=== PATIENT | female | born 1950 | race Caucasian/White ===

== ENCOUNTER 2021-02-02 06:49 | Emergency (ER) | payer MEDICARE, SELFPAY ==
--- NOTE | ~2021-02-02 | CT_ITS ---
EXAMINATION: CT abdomen pelvis w con DATE: 02/02/2021 09:02 INDICATION: Right flank pain 4 days post fall from ladder. TECHNIQUE: Computed tomography (CT) of the abdomen and pelvis was performed with 100 mL Omnipaque-350 intravenous contrast. Automated exposure control and iterative reconstruction technique were employe d. The dose-length product was 391.71 mGy-cm. COMPARISON: None FINDINGS: Mild emphysema in the visualized lower lungs. Mild dependent atelectasis in the bilateral lower lobes . Heart size is normal. No pericardial or pleural effusion. Liver, gallbladder, spleen, pancreas, rafia ateral adrenal glands and kidneys are normal. Bowels including the appendix are normal. Bladder, ante verted uterus and bilateral adnexa are unremarkable. No free intraperitoneal gas or fluid. Mild lumba r dextroscoliosis with severe spondylosis. No acute fractures identified. Spinal stimulator located i n the subcutaneous fat at the left flank with leads extending into the central canal at the level of T9-T10 and extending cephalad beyond the cephalad-most images. IMPRESSION: 1. No acute fracture or acute intra-abdominal/pelvic process. 2. Emphysema. Reviewed, dictated and finalized at location A.
--- NOTE | ~2021-02-02 | XR_ITS ---
EXAMINATION: XR hip RT 2V w AP pelvis DATE: 02/02/2021 07:43 INDICATION: Right hip pain post fall TECHNIQUE: Anteroposterior view of the pelvis and anteroposterior and frog-leg lateral views of the r ight hip were obtained. COMPARISON: None. FINDINGS: Visualized mild lumbar dextroscoliosis with severe spondylosis. Normal alignment and joint space at t he bilateral hips. No fracture or suspected avascular necrosis. IMPRESSION: 1. Normal right hip. No acute osseous abnormality. 2. Mild lumbar dextroscoliosis with severe spondylosis. Reviewed, dictated and finalized at location A.
--- NOTE | ~2021-02-02 | XR_ITS ---
EXAMINATION: [id number] DATE: 02/02/2021 09:12 INDICATION: Right chest injury and pain. TECHNIQUE: A frontal view of the chest and 3 views of the right ribs were obtained. COMPARISON: CT abdomen and pelvis 02/02/2021 FINDINGS: A calcified left lung nodule is consistent with old granulomatous disease. There is mild at electasis at the lung bases. No pleural effusion or pneumothorax. The heart size is normal. Epidural electrodes are noted. There are changes of anterior fusion procedure in cervical spine. There is frac ture of the fixation plate. IMPRESSION: 1. No rib fracture. 2. Cervical anterior fusion procedure with fracture of the fixation plate. Reviewed, dictated and finalized at location A.
[2021-02-02 06:54] VITALS: BP 146/69; PULSE 80; RESP 16; TEMP 36.7; O2SAT 96
--- NOTE | 2021-02-02 08:40 | ED.FALL ---
HPI - Fall General Chief Complaint: Fall Stated Complaint: Right side pain-fell off ladder Time Seen by Provider: 02/02/21 08:22 Source: patient and RN notes reviewed Mode of arrival: ambulatory Limitations: no limitations History of Present Illness HPI Narrative: Patient is 70 years old white female missed stepped and fell landed on the edge of a countertop, against right flank area 4 days ago. Complaining of severe pain at that area. Patient denies any nausea, vomiting, fever or chills. Also denies any head ,neck or extremity injury. Related Data Allergies Allergy/AdvReac Type Severity Reaction Status Date / Time codeine Allergy Difficulty Verified 02/02/21 07:01 Breathing Review of Systems Review of Systems: Narrative: CONSTITUTIONAL: Denies fever, chills, or sweats. EYES: Denies visual changes, redness, or discharge. ENT: Denies rhinorrhea, congestion, sore throat, or otalgia. CARDIOVASCULAR: Denies chest pain, palpitations, or edema. RESPIRATORY: Denies cough or dyspnea. GASTROINTESTINAL: Denies abdominal pain, nausea, vomiting, or diarrhea. GENITOURINARY: Denies dysuria or hematuria. SKIN: Denies rash or itching. MUSCULOSKELETAL: Denies back pain, joint pain, or myalgia. NEUROLOGIC: Denies headache, numbness, or weakness. PSYCHIATRIC: Denies anxiety or depression. Exam Narrative: Exam Narrative: General appearance: Well-developed, well-nourished Skin: Normal color Head: Normocephalic, nontraumatic Eyes: Clear conjunctiva ENT: Oropharynx normal, ears normal, nose normal Neck: Supple, nontender Chest and respiratory: Airway patent, no respiratory distress, no accessory muscle use, moderate tenderness right lower ribs posteriorly Heart: Regular rate/rhythm Abdomen: Soft, severe diffuse tenderness right flank, large bruises, Vascular: Normal peripheral pulses, normal capillary refill. Musculoskeletal: Normal range of motion, nontender back Neurologic: Alert and oriented ?3, HAND POLISHER is normal as tested, no gross motor deficit Course Course Emergency Course: Stable Consultations Consultation #1: Dr. Dumont, spine surgeon at [facility] Patient is okay to go home and follow-up with him as outpatient, call the office at [phone] Date: 02/02/21 Time: 11:12 Vital Signs Vital signs: Vital Signs Temperature 36.7 C 02/02/21 06:54 Pulse Rate 80 02/02/21 06:54 Respiratory Rate 16 02/02/21 06:54 Blood Pressure 146/69 H 02/02/21 06:54 Pulse Oximetry 96 02/02/21 06:54 Temperature 36.7 C 02/02/21 06:54 Pulse Rate 80 02/02/21 06:54 Respiratory Rate 16 02/02/21 06:54 Blood Pressure 146/69 H 02/02/21 06:54 Pulse Oximetry 96 02/02/21 06:54 MDM - Fall MDM Narrative Medical decision making narrative: The plan to rule out internal hemorrhage. Labs, CT abdomen pelvis with IV contrast, x-ray right rib ordered. Further plan to follow Differential Diagnosis Differential diagnosis: Likely other (Liver injury, kidney injury, rib fracture, muscle contusion) Lab Data Result diagrams: 02/02/21 08:52 02/02/21 08:57 Labs: Lab Results 02/02/21 02/02/21 02/02/21 Range/Units 08:52 08:52 08:57 WBC 13.1 H (4.5-10.0) K/mm3 RBC 4.76 (4.2-5.4) M/mm3 Hgb 15.1 H (12.0-15.0) g/dL Hct 45.4 (37.0-47.0) % MCV 95.4 (80-100) fl MCH 31.7 (26-34) pg MCHC 33.3 (32-36) g/dl RDW 14.2 (11.5-14.5) % Plt Count 348 (150-375) k/mm3 MPV 8.8 (7.4-10.4) fl Immature Gran % (Auto) 0.5 (0-0.5) % Neut % (Auto) 84.4 H (45.5-73.1) % Lymph % (Auto) 11.0 L (18.3-44.2) % [place] % (Auto) 3.1 (2.6-8.5) % Eos % (Auto) 0.5 (0-4.4) % B
[2021-02-02 08:58] LABS: Estimated CRCL calculation 56 ml/min; Estimated Glomerular Filt Rate > 60
[2021-02-02 09:00] LABS: Basophils Absolute Auto 0.1 K/mm3 (0.0-0.1); Basophils Percent Auto 0.5 % (0.2-1.2); Eosinophils Absolute Auto 0.1 K/mm3 (0-0.3); Eosinophils Percent Auto 0.5 % (0-4.4); Hematocrit 45.4 % (37.0-47.0); Hemoglobin 15.1 g/dL (12.0-15.0); Immature Granulocyte Absolute 0.07 K/mm3 (0.00-0.031); Immature Granulocyte Percent A 0.5 % (0-0.5); Lymphocytes Absolute Auto 1.44 K/mm3 (0.9-3.2); Mean Corpuscular HGB Conc 33.3 g/dl (32-36); Mean Corpuscular Hemoglobin 31.7 pg (26-34); Mean Corpuscular Volume 95.4 fl (80-100); Mean Platelet Volume 8.8 fl (7.4-10.4); Monocytes Absolute Auto 0.4 K/mm3 (0.1-0.6); Monocytes Percent Auto 3.1 % (2.6-8.5); Neutrophils Absolute Auto 11.1 K/mm3 (1.3-6.7); Neutrophils Percent Auto 84.4 % (45.5-73.1); Platelet Count Result 348 k/mm3 (150-375); Red Blood Count 4.76 M/mm3 (4.2-5.4); Red Cell Distribution Width 14.2 % (11.5-14.5); White Blood Count 13.1 K/mm3 (4.5-10.0)
[2021-02-02 09:12] LABS: Alanine Aminotransferase 18 U/L (4-35); Albumin Level 4.3 g/dL (3.5-5.1); Alkaline Phosphatase 49 U/L (38-126); Anion Gap 4 mmol/L (8-16); Aspartate Amino Transferase 32 U/L (14-36); Bilirubin,Total 0.5 mg/dL (0.2-1.3); Blood Urea Nitrogen 18 mg/dL (7-17); Calcium 9.2 mg/dL (8.4-10.2); Carbon Dioxide 28 mmol/L (22-30); Chloride 105 mmol/L (98-107); Estimated CRCL calculation 63 ml/min; Estimated Glomerular Filt Rate > 60; Glucose 95 mg/dL (65-105); Potassium 4.6 mmol/L (3.4-5.0); Sodium 137 mmol/L (137-145)
== END 2021-02-02 11:17 | disposition home or self-care (01) ==
PROVIDERS: Emergency Provider Emergency Medicine
DX: S30.1XXA Contusion of abdominal wall, initial encounter (principal); Z98.1 Arthrodesis status; M47.816 Spondylosis without myelopathy or radiculopathy, lumbar region; J43.9 Emphysema, unspecified; W11.XXXA Fall on and from ladder, initial encounter
CPT/HCPCS: 36415; 71101; 73502; 74177; 80053; 85025; 99284; Q9967

== ENCOUNTER 2022-09-16 20:23 | Emergency (ER) | payer MEDICARE, SELFPAY ==
--- NOTE | ~2022-09-16 | XR_ITS ---
EXAMINATION: XR chest 2V Exam Date/Time: 09/16/2022 20:52 [employer] HISTORY: SOB FOR 2 DAYS, COPD, SMOKER Comparison: None available. RESULT: Lines, tubes, and devices: Cervical fusion hardware. Left-sided generator pack with leads projecting over the midthoracic spine. Lungs and pleura: Senescent/emphysematous change, otherwise clear. Cardiomediastinal silhouette: Unremarkable. Other: No acute osseous or upper abdominal finding. IMPRESSION: No acute cardiopulmonary process. Reviewed, dictated and finalized at location K. [employer]
[2022-09-16 20:27] VITALS: BP 119/59; PULSE 89; RESP 22; TEMP 36.4; O2SAT 95
--- NOTE | 2022-09-16 20:32 | ECG_ITS ---
Measurements Intervals [place] Rate: 88 P: 79 [place]: 182 QRS: 78 QRSD: 86 T: 75 QT: 357 QTc: 434 Interpretive Statements SINUS RHYTHM POSSIBLE LEFT ATRIAL ENLARGEMENT [-0.1mV P WAVE IN V1/V2] MINIMAL ST DEPRESSION [0.025+ mV ST DEPRESSION] NO PREVIOUS ECG AVAILABLE FOR COMPARISON Electronically Signed On 09-17-2022 16:15:31 TECHNICAL CUSTOMER SUPPORT SPECIALIST by Zachary Koch M.D.
[2022-09-16 20:52] LABS: Basophils Absolute Auto 0.1 K/mm3 (0.0-0.1); Eosinophils Absolute Auto 0.2 K/mm3 (0-0.3); Eosinophils Percent Auto 1.9 % (0-4.4); Hematocrit 45.2 % (37.0-47.0); Hemoglobin 15.3 g/dL (12.0-15.0); Immature Granulocyte Absolute 0.05 K/mm3 (0.00-0.031); Immature Granulocyte Percent A 0.4 % (0-0.5); Lymphocytes Absolute Auto 2.07 K/mm3 (0.9-3.2); Lymphocytes Percent Auto 17.1 % (18.3-44.2); Mean Corpuscular HGB Conc 33.8 g/dl (32-36); Mean Corpuscular Hemoglobin 32.1 pg (26-34); Mean Platelet Volume 9.2 fl (7.4-10.4); Monocytes Absolute Auto 0.6 K/mm3 (0.1-0.6); Monocytes Percent Auto 4.9 % (2.6-8.5); Neutrophils Absolute Auto 9.1 K/mm3 (1.3-6.7); Neutrophils Percent Auto 74.7 % (45.5-73.1); Platelet Count Result 320 k/mm3 (150-375); Red Blood Count 4.76 M/mm3 (4.2-5.4); Red Cell Distribution Width 14.1 % (11.5-14.5); White Blood Count 12.1 K/mm3 (4.5-10.0)
[2022-09-16 21:05] LABS: Alanine Aminotransferase 22 U/L (6-35); Albumin Level 4.3 g/dL (3.5-5.1); Alkaline Phosphatase 55 U/L (38-126); Anion Gap 5 mmol/L (8-16); Aspartate Amino Transferase 30 U/L (14-36); Bilirubin,Total 0.5 mg/dL (0.2-1.3); Blood Urea Nitrogen 13 mg/dL (7-17); Calcium 9.1 mg/dL (8.4-10.2); Carbon Dioxide 28 mmol/L (22-30); Chloride 102 mmol/L (98-107); Estimated CRCL calculation 67 ml/min; Estimated Glomerular Filt Rate > 60; Glucose 127 mg/dL (65-110); Potassium 3.6 mmol/L (3.4-5.0); Sodium 135 mmol/L (137-145)
[2022-09-16 22:11] VITALS: BP 128/66; PULSE 78; RESP 16; O2SAT 91
[2022-09-16] MEDS: ALBUTEROL SULFATE NEB 2.5 MG/3 ML INH INHALATION (23:06)
[2022-09-16] MEDS: IPRATROPIUM BR 0.02% INH SOLN 0.5 MG/2.5 ML VIAL INHALATION (23:06)
[2022-09-16 23:09] VITALS: PULSE 75; RESP 13
[2022-09-16 23:19] VITALS: PULSE 77; RESP 14
--- NOTE | 2022-09-17 00:30 | PC.NURSE ---
pt ambulated to bathroom and around nurse's station without difficulty. pt denied any sob. pt's 02 sat 94% with ambulation.
--- NOTE | 2022-09-17 01:15 | ED.GENADULT ---
HPI - General Adult General Chief complaint: Shortness of Breath/Dyspnea Stated complaint: SOB Time Seen by Provider: 09/16/22 22:16 History of Present Illness HPI narrative: Patient is a 72-year-old female who presents the emergency department chief complaint of shortness of breath. The patient reports he has history of COPD reports that she started having trouble breathing today and reports that she was wheezing pretty significantly at home. Patient reports she had a dry cough reports that she has had no fever. Patient reports she is chronically on prednisone daily. Patient received Solu-Medrol prior to arrival and a breathing treatment and is feeling much better Related Data Allergies Allergy/AdvReac Type Severity Reaction Status Date / Time codeine Allergy Difficulty Verified 02/02/21 07:01 Breathing Review of Systems Review of Systems: A 10 system review of systems was completed on the patient and is negative except for what is stated in the HPI. Nursing and ancillary documentation was reviewed. Exam Narrative: GENERAL: Well-appearing, well-nourished, and in no acute distress. HEAD: Normocephalic, atraumatic. EYES: PERRLA and EOMI. ENT: Nares clear, no rhinorrhea or epistaxis. Mucous membranes moist. NECK: Supple. CHEST: Clear to auscultation. No respiratory distress. HEART: Regular rate and rhythm. No murmur heard. Normal peripheral pulses. ABDOMEN: Soft, nontender, nondistended, normal active bowel sounds. EXTREMITIES: Normal range of motion. No edema. SKIN: Warm, dry, no rash. NEURO: No focal deficits. Alert and oriented x3. PSYCH: Normal mood and affect. Course Course Emergency Course: Chest x-ray showed no evidence of focal infiltrate. EKG is sinus rhythm rate of [address] elevation or ST depression Laboratory studies were obtained which showed a normal white blood cell count electrolytes show no significant abnormalities. Patient did receive Solu-Medrol prior to arrival by EMS and received a breathing treatment. The patient was reporting that she was feeling almost completely back to normal the patient was ambulated and her oxygen saturations were 89 to 90%. The patient received an additional breathing treatment in the emergency department and is now feeling much better and was able to ambulate without desaturation. I discussed with the patient admission versus discharge and the patient is feeling much better and would like to go home. Vital Signs Vital signs: Vital Signs Temperature 36.4 C 09/16/22 20:27 Pulse Rate 89 09/16/22 20:27 Respiratory Rate 22 H 09/16/22 20:27 Blood Pressure 119/59 L 09/16/22 20:27 Pulse Oximetry 95 09/16/22 20:27 Oxygen Delivery Room Air 09/16/22 20:27 Temperature 36.4 C 09/16/22 20:27 Pulse Rate 77 09/16/22 23:19 Respiratory Rate 14 09/16/22 23:19 Blood Pressure 128/66 09/16/22 22:11 Pulse Oximetry 91 09/16/22 22:11 Oxygen Delivery Room Air 09/16/22 20:27 Medical Decision Making Vital Signs Vital Signs: Vital Signs Temperature 36.4 C 09/16/22 20:27 Pulse Rate 89 09/16/22 20:27 Respiratory Rate 22 H 09/16/22 20:27 Blood Pressure 119/59 L 09/16/22 20:27 Pulse Oximetry 95 09/16/22 20:27 Oxygen Delivery Room Air 09/16/22 20:27 Temperature 36.4 C 09/16/22 20:27 Pulse Rate 77 09/16/22 23:19 Respiratory Rate 14 09/16/22 23:19 Blood Pressure 128/66 09/16/22 22:11 Pulse Oximetry 91 09/16/22 22:11 Oxygen Delivery Room Air 09/16/22 20:27 Lab Data 09/16/22 20:44 09/16/22 20:44 Labs: Lab Results 09/16/22 09/16/22 Range/Units 20:44 20:44 WBC 12.1 H (4.5-10.0) K/mm3 RBC 4.76 (4.2-5.4) M/mm3 Hgb 15.3 H (12.0-15.0) g/dL Hct 45.2 (37.0-47.0) % MCV 95.0 (80-100) fl MCH 32.1 (26-34) pg MCHC 33.8 (32-36) g/dl RDW 14.1 (11.5-14.5) % Plt Count 320 (150-375) k/mm3 MPV 9.2 (7.4-10.4) fl Immature Gran %
[2022-09-17 01:40] VITALS: BP 132/75; PULSE 90; RESP 16; O2SAT 94
[2022-09-17] MEDS: ACETAMINOPHEN 500 MG TABLET 1000 MG PO (01:42)
== END 2022-09-17 01:40 | disposition home or self-care (01) ==
PROVIDERS: Emergency Provider Emergency Medicine; PCP Family Medicine
DX: J44.1 Chronic obstructive pulmonary disease with (acute) exacerbation (principal); R94.31 Abnormal electrocardiogram [ECG] [EKG]
CPT/HCPCS: 36415; 71046; 80053; 85025; 93005; 94640; 99284; A9270

== ENCOUNTER 2022-10-22 20:53 | Emergency (ER) | payer MEDICARE, SELFPAY ==
--- NOTE | ~2022-10-22 | XR_ITS ---
EXAMINATION: XR chest 2V Exam Date/Time: 10/22/2022 22:26 CDT HISTORY: SOB, COPD HX OF PNEUMONIA Comparison: 09/16/2022. RESULT: Lines, tubes, and devices: Cervical fusion hardware. Stimulator electrodes project over the midthora cic spine. Posterior generator pack. Lungs and pleura: Senescent/emphysematous change, otherwise clear. Cardiomediastinal silhouette: Stable. Other: No acute osseous or upper abdominal finding. IMPRESSION: No acute cardiopulmonary process. Reviewed, dictated and finalized at location K.
[2022-10-22 21:04] VITALS: BP 110/59; PULSE 93; RESP 22; TEMP 36.9; O2SAT 93
--- NOTE | 2022-10-22 21:08 | ECG_ITS ---
Measurements Intervals [place] Rate: 89 P: 74 [place]: 167 QRS: 76 QRSD: 82 T: 72 QT: 365 QTc: 445 Interpretive Statements SINUS RHYTHM POSSIBLE LEFT ATRIAL ENLARGEMENT BASELINE ARTIFACT- I, II, III, AVR, AVL, AVF, V1 BORDERLINE ECG COMPARED TO ECG 09/16/2022 20:39:35 NO SIGNIFICANT CHANGES Electronically Signed On 10-22-2022 21:52:14 CDT by Jhonatan Locke D.O.
[2022-10-22 21:21] LABS: Basophils Absolute Auto 0.1 K/mm3 (0.0-0.1); Basophils Percent Auto 0.7 % (0.2-1.2); Eosinophils Absolute Auto 0.2 K/mm3 (0-0.3); Eosinophils Percent Auto 1.1 % (0-4.4); Hematocrit 43.8 % (37.0-47.0); Hemoglobin 14.8 g/dL (12.0-15.0); Immature Granulocyte Absolute 0.07 K/mm3 (0.00-0.031); Immature Granulocyte Percent A 0.5 % (0-0.5); Lymphocytes Absolute Auto 1.32 K/mm3 (0.9-3.2); Lymphocytes Percent Auto 9.6 % (18.3-44.2); Mean Corpuscular HGB Conc 33.8 g/dl (32-36); Mean Corpuscular Volume 94.6 fl (80-100); Mean Platelet Volume 8.7 fl (7.4-10.4); Monocytes Absolute Auto 0.2 K/mm3 (0.1-0.6); Monocytes Percent Auto 1.7 % (2.6-8.5); Neutrophils Absolute Auto 11.9 K/mm3 (1.3-6.7); Neutrophils Percent Auto 86.4 % (45.5-73.1); Platelet Count Result 370 k/mm3 (150-375); Red Blood Count 4.63 M/mm3 (4.2-5.4); Red Cell Distribution Width 14.2 % (11.5-14.5); White Blood Count 13.8 K/mm3 (4.5-10.0)
[2022-10-22 21:31] LABS: Alanine Aminotransferase 24 U/L (6-35); Albumin Level 4.2 g/dL (3.5-5.1); Alkaline Phosphatase 71 U/L (38-126); Anion Gap 3 mmol/L (8-16); Aspartate Amino Transferase 27 U/L (14-36); Bilirubin,Total 0.9 mg/dL (0.2-1.3); Blood Urea Nitrogen 15 mg/dL (7-17); Calcium 8.8 mg/dL (8.4-10.2); Carbon Dioxide 28 mmol/L (22-30); Chloride 105 mmol/L (98-107); Estimated CRCL calculation 83 ml/min; Estimated Glomerular Filt Rate > 60; Glucose 132 mg/dL (65-110); Sodium 136 mmol/L (137-145)
[2022-10-23] VITALS (18 sets, daily range): BP systolic 115–137; BP diastolic 64–81; PULSE 72–83; RESP 15–24; O2SAT 89–100
--- NOTE | 2022-10-23 01:44 | ED.SOB ---
HPI - SOB/Dyspnea General Chief Complaint: Shortness of Breath/Dyspnea Stated Complaint: sob Time Seen by Provider: 10/23/22 01:17 History of Present Illness HPI Narrative: This is a 72-year-old female with past history of COPD on daily 10 mg prednisone, who presents to the emergency department complaining of cough and shortness of breath for the past 2 days. She states the cough is nonproductive and nonbloody. She denies associated fevers or chills. She complains of some chest soreness aggravated by cough but no other chest pain. She has no other complaints today. Related Data Allergies Allergy/AdvReac Type Severity Reaction Status Date / Time codeine Allergy Difficulty Verified 10/23/22 00:45 Breathing morphine Allergy Itching Verified 10/23/22 00:45 Review of Systems Review of Systems: CONSTITUTIONAL: Denies fever, chills, or sweats. EYES: Denies visual changes, redness, or discharge. ENT: Denies rhinorrhea, congestion, sore throat, or otalgia. CARDIOVASCULAR: Chest soreness with cough denies palpitations, or edema. RESPIRATORY: Dry cough denies dyspnea. GASTROINTESTINAL: Denies abdominal pain, nausea, vomiting, or diarrhea. GENITOURINARY: Denies dysuria or hematuria. SKIN: Denies rash or itching. MUSCULOSKELETAL: Denies back pain, joint pain, or myalgia. NEUROLOGIC: Denies headache, numbness, dizziness, or weakness. PSYCHIATRIC: Denies anxiety or depression. [facility] Past Medical History Medical History (Updated 10/23/22 @ 01:48 by Kenneth Ring MD) COPD (chronic obstructive pulmonary disease) Exam Narrative: GENERAL: Well-developed, well-nourished, and in no acute distress. HEAD: Normocephalic, atraumatic. EYES: PERRLA and EOMI. ENT: Nares clear, no rhinorrhea or epistaxis. Mucous membranes moist. Oropharynx without tonsillar hypertrophy exudate or other lesions. NECK: Supple. No adenopathy or masses. No carotid bruits or JVD CHEST: Diminished aeration with faint end expiratory wheeze bilaterally. No respiratory distress. No rales or rhonchi HEART: Regular rate and rhythm. No murmur heard. Normal peripheral pulses. ABDOMEN: Soft, nontender, nondistended, normal active bowel sounds. EXTREMITIES: Normal range of motion. No edema. SKIN: Warm, dry, no rash. NEURO: No focal deficits. Alert and oriented x3. PSYCH: Normal mood and affect. Course Course Emergency Course: 03:10 - On reevaluation, the patient states she feels near normal. CBC demonstrates a white blood cell count of 13.8 with left shift but is otherwise unremarkable. Chemistries demonstrate mild hyponatremia of 136 but are otherwise unremarkable. UA negative. Influenza and COVID-negative. Chest x-ray negative for acute cardiopulmonary process. I suspect COPD exacerbation. Will treat with prednisone taper and a Z-Vadim. I discussed the findings and recommendations with the patient. Discussed return and emergent precautions including signs/symptoms of respiratory distress and ACS. The patient voiced understanding and is comfortable with the plan. All questions answered to her satisfaction Vital Signs Vital signs: Vital Signs Temperature 98.4 F 10/22/22 21:04 Pulse Rate 93 10/22/22 21:04 Respiratory Rate 22 H 10/22/22 21:04 Blood Pressure 110/59 L 10/22/22 21:04 Pulse Oximetry 93 10/22/22 21:04 Oxygen Delivery Room Air 10/22/22 21:04 Temperature 98.4 F 10/22/22 21:04 Pulse Rate 74 10/23/22 02:46 Respiratory Rate 16 10/23/22 02:46 Blood Pressure 127/71 10/23/22 02:46 Pulse Oximetry 92 10/23/22 02:46 Oxygen Delivery Room Air 10/22/22 21:04 MDM - SOB/Dyspnea MDM Narrative Medical decision making narrative: Plan: Labs, imaging, nebs, steroids, reassess Differential Diagnosis Differential diagnosis: Likely acute exacerbation of chronic obstructive airways disease, community acquired pneumonia and other (COVID, influenza, other) Lab Data 10/22/22 21:13 10/22/22 21:13
[2022-10-23] MEDS: predniSONE 20 MG TABLET 60 MG PO (01:53)
[2022-10-23] MEDS: ALBUTEROL SULFATE NEB 2.5 MG/3 ML INH INHALATION (01:59)
[2022-10-23] MEDS: IPRATROPIUM BR 0.02% INH SOLN 0.5 MG/2.5 ML VIAL INHALATION (01:59)
[2022-10-23 02:31] LABS: Appearance Urine Clear (Clear); Bilirubin Urine Negative (Negative); Blood Urine Negative (Negative); Color Urine Yellow (Yellow); Glucose Urine UA Negative (Negative); Ketones Urine Negative (Negative); Leukocyte Esterase Ur Negative LEU/UL (Negative); Nitrate Urine Negative (Negative); Protein Urine Negative (Negative); Specific Grav Ur 1.018 (1.001-1.035)
[2022-10-23 02:52] LABS: Add Urine Microscopic? NO
[2022-10-23 03:04] LABS: Influenza A QL RT-PCR Negative (Negative); Influenza B QL RT-PCR Negative (Negative); SARS-CoV-2 RNA PCR Negative
[2022-10-23] MEDS: AZITHROMYCIN 250 MG TABLET 500 MG PO (03:30)
== END 2022-10-23 03:40 | disposition home or self-care (01) ==
PROVIDERS: Emergency Medicine; Emergency Provider Preventive Medicine Aerospace Medicine; PCP Family Medicine
DX: J44.1 Chronic obstructive pulmonary disease with (acute) exacerbation (principal); Z20.822 Contact with and (suspected) exposure to COVID-19
CPT/HCPCS: 36415; 71046; 80053; 81003; 85025; 87636; 93005; 94640; 99284; A9270; J7512

== ENCOUNTER 2023-07-21 11:59 | Observation (INO) | payer MEDICARE, SELFPAY ==
[2023-07-21] VITALS (25 sets, daily range): BP systolic 108–134; BP diastolic 64–89; PULSE 71–90; RESP 13–22; TEMP 36.6; O2SAT 88–97; BMI 25.8
--- NOTE | ~2023-07-21 | XR_ITS ---
EXAMINATION: XR chest 2V DATE: 07/21/2023 13:52 INDICATION: Cough and shortness of breath TECHNIQUE: PA and lateral views of the chest are obtained. COMPARISON: 10/22/2022 FINDINGS: The lungs are hyperinflated but free of acute opacities. No pleural effusion or pneumothora x. The cardiomediastinal silhouette is normal. There is moderate thoracic spondylosis. There are ha ges of anterior fusion in the lower cervical spine with fracture of the stabilization plate. Neurosti mulator leads and in the central spinal canal. There is severe upper lumbar spondylosis. IMPRESSION: 1. No acute cardiopulmonary abnormality. Reviewed, dictated and finalized at location B. ENT SERVICES TECHNICIAN
--- NOTE | 2023-07-21 12:00 | ECG_ITS ---
Measurements Intervals [place] Rate: 88 P: 76 [place]: 161 QRS: 78 QRSD: 82 T: 81 QT: 342 QTc: 415 Interpretive Statements SINUS RHYTHM BASELINE ARTIFACT POSSIBLE LEFT ATRIAL ENLARGEMENT [-0.1mV P WAVE IN V1/V2] MINIMAL ST DEPRESSION [0.025+ mV ST DEPRESSION] BORDERLINE ECG COMPARED TO ECG 10/22/2022 21:16:12 ST (T WAVE) DEVIATION NOW PRESENT Electronically Signed On 07-21-2023 17:16:43 POSITION CLASSIFICATION MANAGER by Dragan Patino M.D.
[2023-07-21 12:16] LABS: Basophils Absolute Auto 0.1 K/mm3 (0.0-0.1); Basophils Percent Auto 0.6 % (0.2-1.2); Eosinophils Absolute Auto 0.1 K/mm3 (0-0.3); Eosinophils Percent Auto 0.8 % (0-4.4); Hemoglobin 15.5 g/dL (12.0-15.0); Immature Granulocyte Absolute 0.08 K/mm3 (0.00-0.031); Immature Granulocyte Percent A 0.6 % (0-0.5); Lymphocytes Absolute Auto 1.05 K/mm3 (0.9-3.2); Lymphocytes Percent Auto 8.1 % (18.3-44.2); Mean Corpuscular Hemoglobin 31.4 pg (26-34); Mean Corpuscular Volume 95.3 fl (80-100); Mean Platelet Volume 8.7 fl (7.4-10.4); Monocytes Absolute Auto 0.9 K/mm3 (0.1-0.6); Monocytes Percent Auto 6.9 % (2.6-8.5); Neutrophils Absolute Auto 10.8 K/mm3 (1.3-6.7); Platelet Count Result 327 k/mm3 (150-375); Red Blood Count 4.93 M/mm3 (4.2-5.4); Red Cell Distribution Width 14.3 % (11.5-14.5)
[2023-07-21 12:27] LABS: INR 0.9; Partial Thromboplastin Time 23.8 SECONDS (22.3-36.8); Prothrombin Time 12.2 Seconds (11.1-14.7)
[2023-07-21 12:29] LABS: Alanine Aminotransferase 20 U/L (6-35); Albumin Level 4.2 g/dL (3.5-5.1); Alkaline Phosphatase 56 U/L (38-126); Anion Gap 6 mmol/L (8-16); Aspartate Amino Transferase 23 U/L (14-36); Bilirubin,Total 0.5 mg/dL (0.2-1.3); Blood Urea Nitrogen 21 mg/dL (7-17); Calcium 9.4 mg/dL (8.4-10.2); Carbon Dioxide 25 mmol/L (22-30); Chloride 104 mmol/L (98-107); Estimated CRCL calculation 53 ml/min; Estimated Glomerular Filt Rate > 60; Glucose 96 mg/dL (65-110); Lipase 91 U/L (23-300); Potassium 3.8 mmol/L (3.4-5.0); Sodium 135 mmol/L (137-145)
[2023-07-21 12:40] LABS: Troponin I < 0.012 ng/mL (0.000-0.034)
[2023-07-21] MEDS: ASPIRIN 81 MG CHEWABLE TABLET 324 MG PO (13:40)
--- NOTE | 2023-07-21 15:00 | ECG_ITS ---
Measurements Intervals [place] Rate: 74 P: 77 [place]: 172 QRS: 79 QRSD: 83 T: 88 QT: 388 QTc: 432 Interpretive Statements SINUS RHYTHM BASELINE ARTIFACT NONSPECIFIC ST ABNORMALITY BORDERLINE ECG COMPARED TO ECG 07/21/2023 12:05:17 NO SIGNIFICANT CHANGES Electronically Signed On 07-21-2023 17:27:05 BAND SPLITTER by Dragan Patino M.D.
[2023-07-21] MEDS: ALBUTEROL SULFATE NEB 2.5 MG/3 ML INH 15 MG INHALATION (15:31)
[2023-07-21] MEDS: IPRATROPIUM BR 0.02% INH SOLN 0.5 MG/2.5 ML VIAL 1.5 MG INHALATION (15:31)
[2023-07-21] MEDS: methylPREDNISolone SOD SUCC 125 MG VIAL IV PUSH (15:31)
[2023-07-21 16:01] LABS: Troponin I < 0.012 ng/mL (0.000-0.034)
--- NOTE | 2023-07-21 17:03 | ED.SOB ---
HPI - SOB/Dyspnea General Chief Complaint: Shortness of Breath/Dyspnea Stated Complaint: SOB/CP Time Seen by Provider: 07/21/23 13:45 History of Present Illness HPI Narrative: Patient is a 73-year-old female who presents ER with shortness of breath. Ongoing for the last 3 days. Also shows mild chest tightness has occasional cough. No fevers or chills or sweats. Has history of COPD. Shortness of breath worse with walking better with rest. Related Data Home Medications Medication Instructions Recorded Confirmed fluticasone 500 mcg-salmeterol 50 1 inh inhalation ONCE 11/04/22 11/26/22 mcg/dose blistr powdr for inhalation (Advair Diskus) hydrocodone 7.5 mg-acetaminophen 1 tablet PO Q8H PRN pain 11/04/22 11/26/22 325 mg tablet umeclidinium 62.5 mcg/actuation 1 inh inhalation DAILY 11/04/22 11/26/22 blister powder for inhalation (Incruse Ellipta) Allergies Allergy/AdvReac Type Severity Reaction Status Date / Time codeine Allergy Difficulty Verified 07/21/23 13:40 Breathing morphine Allergy Itching Verified 07/21/23 13:40 Review of Systems Review of Systems: All systems reviewed & are unremarkable except as noted in HPI and below Constitutional: Constitutional: Reports fatigue and Denies fever(s) Cardiovascular: Cardiovascular: Reports chest pain, Denies rapid heart rate and Denies radiating jaw, neck or arm pain Respiratory: Respiratory: Reports cough, Reports dyspnea and Reports wheezing Gastrointestinal: Gastrointestinal: Reports no additional gastrointestinal complaints Genitourinary: Genitourinary: Reports no additional female genitourinary complaints Musculoskeletal: Musculoskeletal: Reports no additional musculoskeletal complaints [facility] Past Medical History Medical History (Updated 07/21/23 @ 18:58 by Darrin Villalba MD) Allergies COPD (chronic obstructive pulmonary disease) Osteoporosis Family History Family History (Updated 11/04/22 @ 11:37 by Akila Lloyd MA) Sibling Asthma Father Hypertension Depression Anxiety Cerebrovascular accident Grandparent Heart problem Grandparent Cerebrovascular accident Social History Social History (Updated 11/04/22 @ 11:41 by Akila Lloyd MA) Smoking packs per day: 1 Smoking cigarettes per day: 20.0 Smoking status: Former smoker Tobacco type: cigarettes Second hand tobacco smoke exposure: Yes Alcohol intake: never Substance use: never Substance use type: does not use Lack of Transportation: No Current Housing: I Have Housing Concerned About Future Housing: Decline to Answer Difficulty Paying Gas/Electric Bills: Decline to Answer Difficulty Paying for Meds: Decline to Answer Currently Unemployed: Decline to Answer Difficulty w/ Childcare or Family Care: Decline to Answer Living arrangements: alone Gender identity (if verbalized by the patient): Female Sexual Orientation (if Verbalized by the Patient): Straight or Heterosexual Spiritual care concerns: No Exam Narrative: GENERAL: Well-appearing, well-nourished, and in no acute distress. HEAD: Normocephalic, atraumatic. ENT: Mucous membranes moist. NECK: Supple. CHEST: Diminished throughout with wheezing. No respiratory distress. HEART: Regular rate and rhythm. Normal peripheral pulses. ABDOMEN: Soft, nontender, nondistended. EXTREMITIES: Normal range of motion. No edema. SKIN: Warm, dry, no rash. NEURO: Alert and oriented x3. PSYCH: Normal mood and affect. Course Course Emergency Course: Patient resting comfortably. Has received an hour long nebulizer treatment. There is improved air movement throughout the lungs still with mild wheezing. Ambulatory without hypoxia. Vital Signs Vital signs: Vital Signs Temperature 97.9 F 07/21/23 12:05 Pulse Rate 90 07/21/23 12:05 Respiratory Rate 18 07/21/23 12:05 Blood Pressure 131/64 07/21/23 12:05 Pulse Oximetr
--- NOTE | 2023-07-21 17:50 | ECG_ITS ---
Measurements Intervals [place] Rate: 80 P: 71 [place]: 166 QRS: 74 QRSD: 82 T: 86 QT: 382 QTc: 442 Interpretive Statements SINUS RHYTHM COMPARED TO ECG 07/21/2023 15:31:49 NO SIGNIFICANT CHANGES Electronically Signed On 07-22-2023 13:26:42 HOSE TESTER by Zachary Koch M.D.
[2023-07-21 18:37] LABS: Troponin I < 0.012 ng/mL (0.000-0.034)
[2023-07-21 18:48] LABS: Influenza A QL RT-PCR Negative (Negative); Influenza B QL RT-PCR Negative (Negative); RSV RNA, RT-PCR Negative (Negative); SARS-CoV-2 RNA PCR Negative (Negative)
--- NOTE | 2023-07-21 19:16 | PC.NURSE ---
Report given to An WILKS, all questions answered
--- NOTE | 2023-07-21 20:30 | PM.IMHP ---
H&P: HPI History of Present Illness Date/Time: 07/21/23 19:45 Chief Complaint: Shortness of breath. Narrative: This is a very pleasant 73-year-old female smoker with COPD presented to the emergency department via private vehicle from home for evaluation of shortness of breath. The patient provides the following history. The last 4 days or so she has developed a cough productive of light green phlegm, postnasal drip, increase in wheezing from baseline, and dyspnea on lesser and lesser exertion. Her chest feels tight when she cannot get in a deep breath. She has been using her nebulizer treatments more frequently which do seem to help somewhat. Due to ongoing symptoms she decided to come in today for evaluation. She denies fever, chills, sweats, exertional chest pain, syncope, near syncope, edema, calf pain, and vomiting. She was wheezing significantly on arrival to the ED and was given IV Solu-Medrol and a DuoNeb with improvement. She tested negative for influenza, RSV, and COVID. Chest x-ray showed no acute findings. Of note she is on chronic low-dose prednisone at home. While in the ED she became hypoxic in the upper 80s and she is being admitted in this setting for further treatment. Review of Systems Review of Systems: Twelve systems were reviewed and are negative except for as per HPI. [facility] Past Medical History Medical History (Updated 07/21/23 @ 23:32 by Cristina Call PA-C) Allergies Chronic obstructive pulmonary disease Osteoporosis Tobacco abuse Surgical History Surgical History (Updated 07/21/23 @ 23:29 by Cristina Call PA-C) History of bilateral knee arthroplasty History of carpal tunnel release History of section History of spinal surgery Family History Family History Sibling Asthma Father Hypertension Depression Anxiety Cerebrovascular accident Grandparent Heart problem Grandparent Cerebrovascular accident Social History Social History (Updated 07/21/23 @ 23:29 by Cristina Call PA-C) Social History: Surrogate medical decision maker: Lulu Najera, daughter. Code status: Full code. Smoking packs per day: 1 Smoking cigarettes per day: 20.0 Years smoked: 37 Smoking pack-years: 37.00 Smoking status: Current every day smoker Tobacco type: cigarettes Second hand tobacco smoke exposure: Yes Additional smoking assessment comments: Has smoked up to 2 packs of cigarettes a day. Alcohol intake: never Substance use: never Substance use type: does not use Do You Feel Safe in your Home?: Yes Lack of Transportation: No Lack of Food: Never True Current Housing: I Have Housing Concerned About Future Housing: No Difficulty Paying Gas/Electric Bills: No Difficulty Paying for Meds: No Currently Unemployed: No Education: High School Diploma/GED Difficulty w/ Childcare or Family Care: No Living arrangements: alone Spiritual care concerns: No Meds Home Medications and Allergies Home Medications Medication Instructions Recorded Confirmed Type fluticasone 500 mcg-salmeterol 50 1 inh inhalation ONCE 11/04/22 07/21/23 History mcg/dose blistr powdr for inhalation (Advair Diskus) hydrocodone 7.5 mg-acetaminophen 1 tablet PO Q8H PRN pain 11/04/22 07/21/23 History 325 mg tablet umeclidinium 62.5 mcg/actuation 1 inh inhalation DAILY 11/04/22 07/21/23 History blister powder for inhalation (Incruse Ellipta) albuterol sulfate 90 mcg/actuation 90 mcg inhalation DIRECTED 07/21/23 07/21/23 History aerosol inhaler (Ventolin HFA) budesonide 160 mcg-glycopyr 9 See Rx Instructions .Route .COMPLEX 07/21/23 07/21/23 History mcg-formot 4.8 mcg/actuation HFA inhaler (Breztri Aerosphere) prednisone 20 mg tablet 20 mg PO BID 07/21/23 07/21/23 History Allergies Allergy/AdvReac Type Severity Reaction Status Date / Time codei
--- NOTE | 2023-07-21 21:30 | ADMGEN ---
This patient, Haley Najera, was admitted to Medical Room 254-01. Patient/family oriented to hospital policies and general routines including ID bracelet, bed and alarms, visiting hours, pain management, procedures, bathroom and other care routines, personal items, smoking policy, room service/diet, and visiting hours. Information on how to activate the Rapid Response Team has been discussed. Patient/Family are encouraged to report perceived risks to care and to ask questions if they do not understand what they are told or what they should do.
[2023-07-21] MEDS: IPRATROPIUM BR 0.02% INH SOLN 0.5 MG/2.5 ML VIAL INHALATION (22:24)
[2023-07-21] MEDS: ALBUTEROL SULFATE NEB 2.5 MG/3 ML INH INHALATION (22:24)
[2023-07-21] MEDS: methylPREDNISolone SOD SUCC 125 MG VIAL 60 MG IV PUSH (23:04)
[2023-07-22] VITALS (16 sets, daily range): BP systolic 115–147; BP diastolic 60–73; PULSE 69–96; RESP 18–22; TEMP 36.1–36.4; O2SAT 90–95
--- NOTE | 2023-07-22 02:55 | PCRCNOTE ---
Patient did not receive 0000 updraft treatment due to getting one at 22:24. RT will give patient 0400 treatment now.
[2023-07-22] MEDS: ALBUTEROL SULFATE NEB 2.5 MG/3 ML INH INHALATION ×4 (02:59→23:51)
[2023-07-22] MEDS: IPRATROPIUM BR 0.02% INH SOLN 0.5 MG/2.5 ML VIAL INHALATION ×4 (03:00→23:51)
[2023-07-22] MEDS: methylPREDNISolone SOD SUCC 125 MG VIAL 60 MG IV PUSH ×4 (05:13→23:10)
[2023-07-22 05:39] LABS: Hematocrit 43.8 % (37.0-47.0); Hemoglobin 14.7 g/dL (12.0-15.0); Mean Corpuscular HGB Conc 33.6 g/dl (32-36); Mean Corpuscular Hemoglobin 31.7 pg (26-34); Mean Corpuscular Volume 94.6 fl (80-100); Mean Platelet Volume 9.1 fl (7.4-10.4); Platelet Count Result 325 k/mm3 (150-375); Red Blood Count 4.63 M/mm3 (4.2-5.4); Red Cell Distribution Width 14.4 % (11.5-14.5); White Blood Count 8.4 K/mm3 (4.5-10.0)
[2023-07-22 05:46] LABS: Potassium 4.1 mmol/L (3.4-5.0)
[2023-07-22 05:54] LABS: Anion Gap 3 mmol/L (8-16); Blood Urea Nitrogen 15 mg/dL (7-17); Calcium 9.1 mg/dL (8.4-10.2); Carbon Dioxide 24 mmol/L (22-30); Chloride 106 mmol/L (98-107); Estimated CRCL calculation 71 ml/min; Estimated Glomerular Filt Rate > 60; Glucose 147 mg/dL (65-110); Magnesium 2.3 mg/dL (1.6-2.3); Sodium 133 mmol/L (137-145)
[2023-07-22] MEDS: ENOXAPARIN 40 MG/0.4 ML SYRINGE SUB-Q (08:16)
[2023-07-22] MEDS: AMOXICILLIN/CLAVULANATE K 875-125 MG TAB 1 TABLET PO (08:16)
[2023-07-22] MEDS: ACETAMINOPHEN 325 MG TABLET 650 MG PO (11:05)
--- NOTE | 2023-07-22 11:07 | PM.IMPN ---
Progress Note: A&P Assessment and Plan (1) COPD exacerbation: Code(s): J44.1 - Chronic obstructive pulmonary disease with (acute) exacerbation Status: Acute Assessment and Plan: IV steroids, nebs, restart home inhalers, azithromycin rather than Augmentin. (2) Respiratory failure with hypoxia: Code(s): J96.91 - Respiratory failure, unspecified with hypoxia Status: Acute Assessment and Plan: Related to COPD with acute exacerbation, will assess home oxygen evaluation tomorrow (3) Tobacco abuse: Code(s): Z72.0 - Tobacco use Status: Acute Assessment and Plan: He offered nicotine patch which patient declined (4) Hyponatremia: Code(s): E87.1 - Hypo-osmolality and hyponatremia Status: Acute Assessment and Plan: 07/22: Mild, sodium 135 on admission, 133 this morning, track with daily labs Plan Home oxygen eval tomorrow, nebs/steroids/azithromycin today for COPD exacerbation. Time Spent With Patient Time with patient: 25 - 35 minutes Subjective Date/time seen: 07/22/23 11:07 Interval history: 07/21 H&P: This is a very pleasant 73-year-old female smoker with COPD presented to the emergency department via private vehicle from home for evaluation of shortness of breath. The patient provides the following history. The last 4 days or so she has developed a cough productive of light green phlegm, postnasal drip, increase in wheezing from baseline, and dyspnea on lesser and lesser exertion. Her chest feels tight when she cannot get in a deep breath.? She has been using her nebulizer treatments more frequently which do seem to help somewhat. Due to ongoing symptoms she decided to come in today for evaluation. She denies fever, chills, sweats, exertional chest pain, syncope, near syncope, edema, calf pain, and vomiting. She was wheezing significantly on arrival to the ED and was given IV Solu-Medrol and a DuoNeb with improvement. She tested negative for influenza, RSV, and COVID. Chest x-ray showed no acute findings. Of note she is on chronic low-dose prednisone at home. While in the ED she became hypoxic in the upper 80s and she is being admitted in this setting for further treatment. 07/22: Patient reports that even with the oxygen walking causes her dyspnea. She does not wear oxygen at home but she feels like she needs to. Patient takes breasts tree and ProAir twice daily and uses Ventolin as a rescue inhaler. Patient appears very shaky and very dyspneic after walking back the bathroom. Diminished lung sounds with expiratory wheeze present along with mild to moderate tachycardia. Patient reports that she had cold symptoms for a couple of days and that she still has nasal congestion and postnasal drip which are interfering with breathing. OK to DC Tele. Review of Systems Review of Systems: Twelve systems were reviewed and are negative except for as per HPI. Exam Narrative: GENERAL: Chronically ill-appearing, awake alert oriented, significantly dyspneic and shaky after walking back the bathroom HEAD: Normocephalic, atraumatic. ENT:? Mucous membranes moist. CHEST: Diminished air entry with expiratory wheeze, moderate respiratory distress on supplemental oxygen HEART: Tachycardic rate and regular rhythm. ? Normal peripheral pulses. ABDOMEN: Soft, nontender, nondistended. EXTREMITIES: Normal range of motion. No peripheral edema. SKIN: Warm dry normal color NEURO: Alert and oriented x3. PSYCH: Normal mood and affect Objective Data Vital Signs Vital Signs: Vital Signs - 24 hr 07/21/23 12:05 07/21/23 13:37 07/21/23 13:41 Temperature 36.6 C Pulse Rate 90 85 Respiratory Rate 18 19 Blood Pressure 131/64 131/71 Pulse Oximetry 96 97 97 Oxygen Delivery Room Air Room Air Oxygen Flow Rate 07/21/23 15:32 07/21/23 16:37 07/21/23 15:33 Temperature Pulse Rate 72 83 76 Respiratory Rate 17 22 H 21 H Blood Pressure 131/76 Pulse Oxime
[2023-07-22] MEDS: AZITHROMYCIN 250 MG TABLET 500 MG PO (12:31)
--- NOTE | 2023-07-22 16:43 | PHAR ---
HOME MED: BREZTRI 160 MCG/9 MCG/4.8 MCG PER INHALATION INHALER, VERIFIED BY PHARMACY.
[2023-07-23] VITALS (15 sets, daily range): BP systolic 106–140; BP diastolic 64–70; PULSE 80–120; RESP 20–24; TEMP 36–36.6; O2SAT 86–97
[2023-07-23] MEDS: IPRATROPIUM BR 0.02% INH SOLN 0.5 MG/2.5 ML VIAL INHALATION ×2 (04:23→09:31)
[2023-07-23] MEDS: ALBUTEROL SULFATE NEB 2.5 MG/3 ML INH INHALATION ×2 (04:24→09:31)
[2023-07-23 04:49] LABS: Hematocrit 46.9 % (37.0-47.0); Hemoglobin 15.3 g/dL (12.0-15.0); Mean Corpuscular HGB Conc 32.6 g/dl (32-36); Mean Corpuscular Hemoglobin 31.5 pg (26-34); Mean Corpuscular Volume 96.5 fl (80-100); Platelet Count Result 323 k/mm3 (150-375); Red Blood Count 4.86 M/mm3 (4.2-5.4); Red Cell Distribution Width 14.4 % (11.5-14.5); White Blood Count 15.9 K/mm3 (4.5-10.0)
[2023-07-23 05:01] LABS: Alanine Aminotransferase 22 U/L (6-35); Albumin Level 4.2 g/dL (3.5-5.1); Alkaline Phosphatase 57 U/L (38-126); Anion Gap 6 mmol/L (8-16); Aspartate Amino Transferase 27 U/L (14-36); Bilirubin,Total 0.6 mg/dL (0.2-1.3); Blood Urea Nitrogen 18 mg/dL (7-17); Calcium 9.2 mg/dL (8.4-10.2); Carbon Dioxide 28 mmol/L (22-30); Chloride 104 mmol/L (98-107); Estimated CRCL calculation 53 ml/min; Estimated Glomerular Filt Rate > 60; Glucose 127 mg/dL (65-110); Magnesium 2.4 mg/dL (1.6-2.3); Potassium 4.5 mmol/L (3.4-5.0); Sodium 138 mmol/L (137-145)
[2023-07-23] MEDS: methylPREDNISolone SOD SUCC 125 MG VIAL 60 MG IV PUSH ×2 (05:23→12:15)
[2023-07-23 05:34] LABS: Band Neutrophils Percent 7 % (0-6); Lymphocytes Absolute Manual 1.11 K/mm3 (1.1-4.5); Lymphocytes Percent Manual 7 % (18-44); Monocytes Absolute Manual 0.31 K/mm3 (0.1-0.90); Monocytes Percent Manual 2 % (3-9); Neutrophils Absolute Manual 14.46 K/mm3 (1.7-7.2); Neutrophils Percent Manual 84 % (46-73); Platelet Estimate Adequate (Adequate); Total Cells Counted 100
[2023-07-23 05:35] LABS: Atypical Lymphocytes Present; Schistocytes None Seen (NORMAL)
[2023-07-23] MEDS: AZITHROMYCIN 250 MG TABLET PO (08:52)
[2023-07-23] MEDS: ENOXAPARIN 40 MG/0.4 ML SYRINGE SUB-Q (08:52)
[2023-07-23] MEDS: FLUTICASONE PROPIONATE 0.05% NA SPR 16 GM BTL (*BKC) 1 SPRAY NASAL (08:53)
--- NOTE | 2023-07-23 09:50 | PM.IMPN ---
Subjective Date/time seen: 07/23/23 09:50 Objective Data Vital Signs Vital Signs: Vital Signs - 24 hr 07/22/23 10:47 07/22/23 13:29 07/22/23 16:12 Temperature 36.2 C L Pulse Rate 90 74 Respiratory Rate 20 22 H Blood Pressure 115/60 Pulse Oximetry 90 95 Oxygen Delivery Nasal Cannula Oxygen Flow Rate 2 07/22/23 16:00 07/22/23 19:48 07/22/23 19:48 Temperature 36.1 C L Pulse Rate 90 78 Respiratory Rate 18 22 H Blood Pressure 124/73 Pulse Oximetry 93 92 Oxygen Delivery Nasal Cannula Oxygen Flow Rate 2 07/22/23 19:57 07/22/23 20:00 07/22/23 20:25 Temperature 36.1 C L Pulse Rate 94 70 Respiratory Rate 20 20 Blood Pressure 136/64 Pulse Oximetry 94 94 Oxygen Delivery Nasal Cannula Oxygen Flow Rate 2 07/22/23 23:53 07/23/23 00:01 07/23/23 00:00 Temperature 36.0 C L Pulse Rate 82 83 88 Respiratory Rate 22 H 22 H 20 Blood Pressure 119/64 Pulse Oximetry 92 Oxygen Delivery Oxygen Flow Rate 07/23/23 04:24 07/23/23 04:37 07/23/23 04:00 Temperature 36.1 C L Pulse Rate 80 83 89 Respiratory Rate 20 21 H 20 Blood Pressure 106/70 Pulse Oximetry 94 Oxygen Delivery Oxygen Flow Rate 07/23/23 09:31 07/23/23 09:34 Temperature 36.6 C Pulse Rate 109 H 109 H Respiratory Rate 24 H 20 Blood Pressure 140/67 Pulse Oximetry 97 Oxygen Delivery Oxygen Flow Rate Intake/Output Intake/Output: Intake & Output 07/20/23 07/21/23 07/22/23 07/23/23 23:59 23:59 23:59 23:59 Intake Total 1970 850 Output Total 1150 1330 Balance 820 -480 Meds/Results Medications: Active Medications Generic Name Dose Route Start Last Admin Trade Name Freq PRN Reason Stop Dose Admin Acetaminophen 650 mg 07/21/23 23:34 07/22/23 11:05 Acetaminophen 325 Mg Tablet PO 650 mg Q6H PRN Administration Mild Pain (1-3) or Fever Hydrocodone Bitart/Acetaminophen 1 tab 07/21/23 17:43 Hydrocodone/Acetaminophen (*Crx) 5-325 Mg Tablet PO Q4H PRN Pain Rated 4-6 Albuterol 2.5 mg 07/22/23 00:00 07/23/23 09:31 Albuterol Sulfate Neb 2.5 Mg/3 Ml Inh INHALATION 2.5 mg Q4HRT GRISEL Administration Albuterol 2 puff 07/22/23 10:27 Albuterol Sulfate (*Sp) Aerosol 1 Puff INHALATION Q4HRT PRN wheeze/shortness of breath Azithromycin 250 mg 07/23/23 09:00 07/23/23 08:52 Azithromycin 250 Mg Tablet PO 07/26/23 09:01 250 mg DAILY GRISEL Administration Enoxaparin Sodium 40 mg 07/22/23 09:00 07/23/23 08:52 Enoxaparin 40 Mg/0.4 Ml Syringe SUB-Q 40 mg DAILY GRISEL Administration Fluticasone Propionate 1 spray 07/22/23 21:00 07/23/23 08:53 Fluticasone Propionate 0.05% Na Spr 16 Gm Btl (*Bkc) NASAL 1 spray Q12HR GRISEL Administration Ipratropium [place] 0.5 mg 07/22/23 00:00 07/23/23 09:31 Ipratropium Br 0.02% Inh Soln 0.5 Mg/2.5 Ml Vial INHALATION 0.5 mg Q4HRT GRISEL Administration Methylprednisolone Sodium Succinate 60 mg 07/22/23 00:00 07/23/23 05:23 Methylprednisolone Sod Succ 125 Mg Vial IV PUSH 60 mg Q6HR GRISEL Administration Breztri 160 Mcg/9 2 each 07/22/23 20:00 07/22/23 19:45 Mcg/4.8 Mcg Per INHALATION 08/21/23 19:59 2 each Inhalation Inhaler Q12HRT GRISEL Administration Ondansetron HCl 4 mg 07/21/23 17:43 Ondansetron Inj 4 Mg/2 Ml Vial IV PUSH Q4H PRN Nausea Oxymetazoline HCl 1 spray 07/22/23 12:16 Oxymetazoline Hcl 0.05% Prashant 15 Ml Btl (*Bkc) NASAL Q12HR PRN Congestion Radiology Results: ITS Impressions Chest X-Ray 07/21/23 13:59 IMPRESSION: 1. No acute cardiopulmonary abnormality. Labs Labs: Laboratory Results - last 24 hr 07/23/23 04:39 WBC 15.9 H RBC 4.86 Hgb 15.3 H Hct 46.9 MCV 96.5 MCH 31.5 MCHC 32.6 RDW 14.4 Plt Count 323 MPV 9.0 Immature Gran % (Auto) Not Reportable Neut % (Auto) Not Reportable Lymph % (Auto) Not Reportable [place] % (Auto) Not Reportable Eos % (Auto) Not Reportable
--- NOTE | 2023-07-23 10:48 | HOMEO2EVAL ---
Evaluation was performed at [facility] Home Oxygen Evaluation RC: Home Oxygen (O2) Evaluation Start: 07/23/23 06:32 Freq: ONCE Status: Active Protocol: RPE Activity Type Activity Date Activity User E-sign Co-sign Detail Recorded Client Recorded Date Recorded By Document 07/23/23 10:00 [email or web address] [email or web address] 07/23/23 10:48 DJO Document 07/23/23 10:05 [email or web address] [email or web address] 07/23/23 10:48 DJO Document 07/23/23 10:10 [email or web address] [email or web address] 07/23/23 10:48 DJO Document 07/23/23 10:15 [email or web address] [email or web address] 07/23/23 10:48 DJO Document 07/23/23 10:20 [email or web address] [email or web address] 07/23/23 10:48 DJO Document 07/23/23 10:25 [email or web address] [email or web address] 07/23/23 10:48 DJO Document 07/23/23 10:35 [email or web address] [email or web address] 07/23/23 10:48 DJO 07/23/23 07/23/23 07/23/23 10:00 10:05 10:10 Home O2 Evaluation [Oxygen] -Test Phase Resting Resting Resting -Oxygen Delivery Room Air Nasal Cannula Nasal Cannula -Oxygen Flow Rate (L/min) 1 2 [Pulse Oximetry] -Pulse Oximetry (90-100 %) 87 L 88 L 90 [Pulse Rate] -Pulse Rate (60-100 beats/min) 92 94 96 [Evaluation] -Activity Tolerance [Charges] -Evaluation Charges O2 Evaluation by Pulmonary 07/23/23 07/23/23 07/23/23 10:15 10:20 10:25 Home O2 Evaluation [Oxygen] -Test Phase Exercise Exercise Exercise -Oxygen Delivery Nasal Cannula Nasal Cannula Nasal Cannula -Oxygen Flow Rate (L/min) 2 3 4 [Pulse Oximetry] -Pulse Oximetry (90-100 %) 86 L 88 L 90 [Pulse Rate] -Pulse Rate (60-100 beats/min) 116 H 118 H 120 H [Evaluation] -Activity Tolerance Good [Charges] -Evaluation Charges 07/23/23 10:35 Home O2 Evaluation [Oxygen] -Test Phase Resting -Oxygen Delivery Nasal Cannula -Oxygen Flow Rate (L/min) 2 [Pulse Oximetry] -Pulse Oximetry (90-100 %) 91 [Pulse Rate] -Pulse Rate (60-100 beats/min) 95 [Evaluation] -Activity Tolerance [Charges] -Evaluation Charges
--- NOTE | 2023-07-23 10:55 | PCRCNOTE ---
HOME O2 EVAL COMPLETE, 2L AT REST AND 4L WITH ACTIVITY. SET UP WITH IV& RESP CARE. PHONE NUMBER . TANK IN ROOM FOR DISCHARGE.
--- NOTE | 2023-07-23 11:09 | PM.DS ---
DS: Admitting Diagnosis Discharge Date 07/23/2023 Admitting Diagnosis COPD exacerbation, respiratory failure with hypoxia, tobacco abuse DS: Discharge Diagnosis Discharge Diagnosis (1) COPD exacerbation: Code(s): J44.1 - Chronic obstructive pulmonary disease with (acute) exacerbation Status: Acute (2) Respiratory failure with hypoxia: Code(s): J96.91 - Respiratory failure, unspecified with hypoxia Status: Acute (3) Tobacco abuse: Code(s): Z72.0 - Tobacco use Status: Acute (4) Hyponatremia: Code(s): E87.1 - Hypo-osmolality and hyponatremia Status: Acute (5) Chronic anxiety: Code(s): F41.9 - Anxiety disorder, unspecified Status: Acute DS: Summary Hospital Course Reason for hospitalization: COPD exacerbation with hypoxia Hospital Course: 07/21 H&P:? This is a very pleasant 73-year-old female smoker with COPD presented to the emergency department via private vehicle from home for evaluation of shortness of breath. The patient provides the following history. The last 4 days or so she has developed a cough productive of light green phlegm, postnasal drip, increase in wheezing from baseline, and dyspnea on lesser and lesser exertion. Her chest feels tight when she cannot get in a deep breath.? She has been using her nebulizer treatments more frequently which do seem to help somewhat. Due to ongoing symptoms she decided to come in today for evaluation. She denies fever, chills, sweats, exertional chest pain, syncope, near syncope, edema, calf pain, and vomiting. She was wheezing significantly on arrival to the ED and was given IV Solu-Medrol and a DuoNeb with improvement. She tested negative for influenza, RSV, and COVID. Chest x-ray showed no acute findings. Of note she is on chronic low-dose prednisone at home. While in the ED she became hypoxic in the upper 80s and she is being admitted in this setting for further treatment. 07/22:? Patient reports that even with the oxygen walking causes her dyspnea.? She does not wear oxygen at home but she feels like she needs to.? Patient takes breasts tree and ProAir twice daily and uses Ventolin as a rescue inhaler.? Patient appears very shaky and very dyspneic after walking back the bathroom.? Diminished lung sounds with expiratory wheeze present along with mild to moderate tachycardia.? Patient reports that she had cold symptoms for a couple of days and that she still has nasal congestion and postnasal drip which are interfering with breathing.? OK to DC Tele. 07/23: Home oxygen evaluation completed, patient needs 2 liters at rest and 4 liters on ambulation. Patient insisting on discharge today now that home oxygen has been set up. Wheezing has improved. Will discharge with completion of azithromycin. Patient to follow up with primary care. Time spent discussing smoking cessation with patient: 3 to 10 minutes Status at Discharge Cognitive/behavioral status at discharge: awake, alert, oriented and anxious which is baseline for patient Functional status at discharge: independent ambulation Overall status at discharge: patient is progressing back to baseline Time Spent with Patient Time attestation: Total time spent providing and/or coordinating discharge services: 35 minutes Time spent: Greater than 30 minutes Exam Narrative: GENERAL: Chronically ill-appearing, awake alert oriented HEAD: Normocephalic, atraumatic. ENT:? Mucous membranes moist. CHEST: Diminished air entry, no wheezing. Mild dyspnea on exertion. HEART: Mildly tachycardic rate and regular rhythm. ? Normal peripheral pulses. ABDOMEN: Soft, nontender, nondistended. EXTREMITIES: Normal range of motion. No peripheral edema. SKIN: Warm dry normal color NEURO: Alert and oriented x3. PSYCH: Normal mood and anxious affect DS: Data Data Completed and Pending Completed studies during hospitalization: Chest x-ray Labs on day of discharge: Labs from last 24 h
== END 2023-07-23 12:48 | disposition home health service (06) ==
LOC: ANHED 14:04 → ANH3MEDSUR 18:58 → ANH2MED 21:18 → ANH3MEDSUR 07-24 07:45 → ANH2MED 07-24 07:45
PROVIDERS: Nurse Practitioner; Physician Assistant; Admitting Provider Internal Medicine; Emergency Provider Emergency Medicine; PCP Family Medicine; Visit Provider Hospitalist
DX: J44.1 Chronic obstructive pulmonary disease with (acute) exacerbation (principal); J96.91 Respiratory failure, unspecified with hypoxia; E87.1 Hypo-osmolality and hyponatremia; F41.9 Anxiety disorder, unspecified; Z20.822 Contact with and (suspected) exposure to COVID-19; M81.0 Age-related osteoporosis without current pathological fracture; F17.210 Nicotine dependence, cigarettes, uncomplicated; Z79.51 Long term (current) use of inhaled steroids; Z79.52 Long term (current) use of systemic steroids; Z79.1 Long term (current) use of non-steroidal anti-inflammatories (NSAID); Z79.891 Long term (current) use of opiate analgesic
CPT/HCPCS: 36415; 71046; 80048; 80053; 83690; 83735; 84484; 85025; 85027; 85610; 85730; 87637; 93005; 94618; 94640; 96372; 96374; 96376; 99285; A9270; G0378; J1650; J2930